=== PATIENT | male | born 1970 | race Hispanic/Latino ===

== ENCOUNTER 2020-10-17 09:19 | Outpatient (CLI) | payer BC ==
[2020-10-17 22:12] LABS: SARS-CoV-2 PCR by NAA Not Detected (NotDetected)
== END 2020-10-17 09:20 | disposition home or self-care (01) ==
LOC: CSHLAB 09:19
PROVIDERS: ATTEND Otolaryngology Otolaryngic Allergy
DX: Z01.818 Encounter for other preprocedural examination (principal); Z20.822 Contact with and (suspected) exposure to COVID-19; G47.33 Obstructive sleep apnea (adult) (pediatric)
CPT/HCPCS: 87635; 93005; 93010; U0003; U0005

== ENCOUNTER 2020-10-22 07:38 | Day surgery (SDC) | payer BC ==
[2020-10-18 14:51] VITALS: BMI 28.1
[2020-10-22] MEDS ORDERED: Lidocaine 1% MPF 2 ML VIAL ONE (08:38)
[2020-10-22] MEDS ORDERED: PROPOFOL 40 ML ONE (08:54)
[2020-10-22] MEDS ORDERED: Midazolam HCl 2 mg/2 ml Vial ONE (08:54)
[2020-10-22] MEDS ORDERED: Oxymetazoline HCl 0.05% ( 15 ML ) ONE (08:59)
== END 2020-10-22 10:10 | disposition home or self-care (01) ==
LOC: CSHSDC 07:38
PROVIDERS: ATTEND Otolaryngology Otolaryngic Allergy
DX: G47.33 Obstructive sleep apnea (adult) (pediatric) (principal)
CPT/HCPCS: J2250; J2704

== ENCOUNTER 2020-11-14 11:57 | Outpatient (CLI) | payer BC ==
[2020-11-14 21:58] LABS: SARS-CoV-2 PCR by NAA Not Detected (NotDetected)
== END 2020-11-14 11:58 | disposition home or self-care (01) ==
LOC: CSHLAB 11:57
PROVIDERS: ATTEND Otolaryngology Otolaryngic Allergy
DX: Z20.822 Contact with and (suspected) exposure to COVID-19 (principal); G47.33 Obstructive sleep apnea (adult) (pediatric)
CPT/HCPCS: 87635; U0003; U0005